=== PATIENT | female | born 1955 | race Caucasian/White ===

== ENCOUNTER 2022-01-08 12:34 | Emergency (ER) | payer MEDICARE, SELFPAY ==
--- NOTE | ~2022-01-08 | CT_ITS ---
EXAMINATION: CT abdomen pelvis wo con DATE: 01/08/2022 13:45 INDICATION: right flank pain TECHNIQUE: Computed tomography (CT) of the abdomen and pelvis was performed without intravenous contr ast. Automated exposure control and iterative reconstruction technique were employed. The dose-length product was 604.15 mGy-cm. COMPARISON: None. FINDINGS: Lower thorax: Coronary artery calcification. Hiatal hernia. Liver: Normal. Biliary/Gallbladder: Gallbladder is absent. No bile duct dilation. Pancreas: No mass or duct dilation. Spleen: Normal. Adrenals:No mass. Kidneys: Mild right pelviectasis and proximal/mid ureterectasis. No renal calcification or mass. GI tract: No small or large bowel dilation. Normal appendix. Mesentery/Peritoneum: No ascites, mass, or free air. Retroperitoneum: No mass. Atherosclerotic abdominal aortic and/or arterial calcifications. Pelvis: Pelvic anatomy completely obscured by beam hardening artifact from bilateral hip arthroplasti es. Soft Tissues: Soft tissues and body wall unremarkable. Bones: No acute osseous finding. IMPRESSION: Minimal right hydronephrosis without obstructing mass or stone identified, noting that the distal ure ters (along with the majority of the pelvic contents) are obscured by beam hardening artifact from hi p arthroplasties. Reviewed, dictated and finalized at [facility]. IMPRESSION: Minimal right hydronephrosis without obstructing mass or stone identified, noti ng that the distal ureters (along with the majority of the pelvic contents) are obscured by beam hardening artifact from hip arthroplasties.
--- NOTE | ~2022-01-08 | XR_ITS ---
XR abdomen/kub 1V DATE: 01/08/2022 14:57 INDICATION: Right flank pain for one week. Hematuria. TECHNIQUE: AP projection, 2 views COMPARISON: 01/08/[address] abdomen pelvis FINDINGS: Status post bilateral total hip arthroplasty. Surgical clips, right upper quadrant, consistent with cholecystectomy. No visceromegaly is evident. The psoas shadows are intact. There is an approximately 2 mm calcification overlying the right lower pelvis; this might be a calcif ied phlebolith, less likely a ureterovesical or distal ureteral calculus. Follow-up radiographs would be helpful to differentiate these possibilities. Status post bilateral total hip arthroplasty. No evidence of bowel obstruction. IMPRESSION: Nonspecific abdomen Right pelvic 2 mm calcification overlying the lower pelvic area is likely a small calcified phlebolit h, less likely a distal ureteral or ureterovesical junction calculus. Follow-up KUB examinations may be of benefit (considering the extensive streak artifact from the bilateral hip arthroplasties on CT imaging). Status post bilateral total hip arthroplasty Reviewed, dictated and finalized at [facility]. Reviewed, dictated and finalized at [facility]. IMPRESSION: Nonspecific abdomen Right pelvic 2 mm calcification overlying the lower pelvic area is likely a sma ll calcified phlebolith, less likely a distal ureteral or ureterovesical juncti on calculus. Follow-up KUB examinations may be of benefit (considering the exte nsive streak artifact from the bilateral hip arthroplasties on CT imaging). Status post bilateral total hip arthroplasty
[2022-01-08 12:38] VITALS: BP 128/65; PULSE 56; RESP 16; TEMP 36.2; O2SAT 97
--- NOTE | 2022-01-08 12:59 | ED.ABDPAIN ---
HPI - Abdominal Pain General Chief Complaint: Back Pain/Injury Stated Complaint: kidney pain Time Seen by Provider: 01/08/22 12:54 History of Present Illness HPI narrative: here with right flank pain a week ago then blood in urine last Friday then all some better but then again last 24-48 hours constant pain again. deep inside no f/n/v/d/change in chronic urine frequency due to bladder sling issues. no other trauma/cp/sob/uri or other c/o no family or her h/o kidney stones or frequent utis Related Data Allergies Allergy/AdvReac Type Severity Reaction Status Date / Time aspirin [From Aggrenox] Allergy Unknown Verified 01/08/22 12:58 dipyridamole [From Aggrenox] Allergy Unknown Verified 01/08/22 12:58 Review of Systems Constitutional: Comments: CONSTITUTIONAL: Denies fever, chills, or sweats. EYES: Denies visual changes, redness, or discharge. ENT: Denies rhinorrhea, congestion, sore throat, or otalgia. CARDIOVASCULAR: Denies chest pain, palpitations, or edema. RESPIRATORY: Denies cough or dyspnea. GASTROINTESTINAL: Denies abdominal pain, nausea, vomiting, or diarrhea. GENITOURINARY: Denies dysuria has hematuria and right flank pain SKIN: Denies rash or itching. MUSCULOSKELETAL: Denies back pain, joint pain, or myalgia. NEUROLOGIC: Denies headache, numbness, or weakness. PSYCHIATRIC: Denies anxiety or depression. Exam Const: Other: APPEARANCE: Well appearing, no pain in distress, well-nourished. Head normocephalic atraumtaic. EYES: PERRLA/EOMI, conjunctivae very clear. NOSE: Normal no drainage EARS:TMS clear Gina Iniguez, with good light reflex. THROAT: Pharynx clear, no exudate. NECK: Supple. No adenopathy, no masses. RESPIRATORY: Airway patent, repsirations nonlabored. Clear to auscultation bilaterally, no rales, rhonchi, wheezing. CARDIOVASCULAR: Regular rate and rhythm without murmurs rubs or gallops. ABDOMINAL: Soft, nontender, nondistended, no hepatosplenomegally can;t reproduce the cva tend says just down deep MUSCULOSKELETAl: Moves all extremities. Strenght/ROM intact, No edema, No calf tenderness. NEURO: Alert. Cranial nerves II through XII intact. Good gait. Good coordination SKIN:: Warm, dry. Normal Color PSYCHIATRIC: Normal affect/mood, normal interaction with parents. Course Reevaluation(s) Reevaluation #1: pt doing better and discussed plan shes good wiht it all and will d/c after kub Consultations Consultation #1: dr guzman at [id number] aware all results adn says get kub given artifact from hardware and treat as stone and f/u in his office Vital Signs Vital signs: Vital Signs Temperature 36.2 C L 01/08/22 12:38 Pulse Rate 56 L 01/08/22 12:38 Respiratory Rate 16 01/08/22 12:38 Blood Pressure 128/65 01/08/22 12:38 Pulse Oximetry 97 01/08/22 12:38 Oxygen Delivery Room Air 01/08/22 12:38 Temperature 36.2 C L 01/08/22 12:38 Pulse Rate 56 L 01/08/22 12:38 Respiratory Rate 16 01/08/22 12:38 Blood Pressure 128/65 01/08/22 12:38 Pulse Oximetry 97 01/08/22 12:38 Oxygen Delivery Room Air 01/08/22 12:38 MDM - Abdominal Pain Lab Data Result diagrams: 01/08/22 13:12 01/08/22 13:12 Labs: Lab Results 01/08/22 01/08/22 01/08/22 Range/Units 13:12 13:12 13:15 WBC 5.8 (4.5-10.0) K/mm3 RBC 4.34 (4.2-5.4) M/mm3 Hgb 13.4 (12.0-15.0) g/dL Hct 39.2 (37.0-47.0) % MCV 90.3 (80-100) fl MCH 30.9 (26-34) pg MCHC 34.2 (32-36) g/dl RDW 12.6 (11.5-14.5) % Plt Count 257 (150-375) k/mm3 MPV 10.0 (7.4-10.4) fl Immature Gran % (Auto) 0.2 (0-0.5) % Neut % (Auto) 55.1 (45.5-73.1) % Lymph % (Auto) 31.9 (18.3-44.2) % Dane % (Auto) 9.4 H (2.6-8.5) % Eos % (Auto) 3.1 (0-4.4) % Baso % (Auto) 0.3 (0.2-1.2) % Lymph # (Auto) 1.84 (0.9-3.2) K/mm3 Dane # (Auto) 0.5 (0.1-0.6) K/mm3 Eos # (Auto) 0.2 (0-0.3) K/mm3 Baso # (Auto) 0.0 (0.0-0.1) K/mm3 Abs Immat Gran (auto)
[2022-01-08] MEDS: SODIUM CHLORIDE 0.9% IV 1,000 ML 999 ML IV CONT (13:21)
[2022-01-08] MEDS: ONDANSETRON INJ 4 MG/2 ML VIAL IV PUSH (13:22)
[2022-01-08] MEDS: KETOROLAC 30 MG/ML VIAL (*BKC) IV PUSH (13:22)
[2022-01-08 13:24] LABS: Basophils Percent Auto 0.3 % (0.2-1.2); Eosinophils Absolute Auto 0.2 K/mm3 (0-0.3); Eosinophils Percent Auto 3.1 % (0-4.4); Hematocrit 39.2 % (37.0-47.0); Hemoglobin 13.4 g/dL (12.0-15.0); Immature Granulocyte Absolute 0.01 K/mm3 (0.00-0.031); Immature Granulocyte Percent A 0.2 % (0-0.5); Lymphocytes Absolute Auto 1.84 K/mm3 (0.9-3.2); Lymphocytes Percent Auto 31.9 % (18.3-44.2); Mean Corpuscular HGB Conc 34.2 g/dl (32-36); Mean Corpuscular Hemoglobin 30.9 pg (26-34); Mean Corpuscular Volume 90.3 fl (80-100); Monocytes Absolute Auto 0.5 K/mm3 (0.1-0.6); Monocytes Percent Auto 9.4 % (2.6-8.5); Neutrophils Absolute Auto 3.2 K/mm3 (1.3-6.7); Neutrophils Percent Auto 55.1 % (45.5-73.1); Platelet Count Result 257 k/mm3 (150-375); Red Blood Count 4.34 M/mm3 (4.2-5.4); Red Cell Distribution Width 12.6 % (11.5-14.5); White Blood Count 5.8 K/mm3 (4.5-10.0)
[2022-01-08 13:33] LABS: Appearance Urine Clear (Clear); Bilirubin Urine Negative (Negative); Blood Urine Negative (Negative); Color Urine Yellow (Yellow); Glucose Urine UA Negative (Negative); Ketones Urine Negative (Negative); Leukocyte Esterase Ur Negative LEU/UL (Negative); Nitrate Urine Negative (Negative); Protein Urine Negative (Negative); Urobilinogen Urine 0.2 mg/dL (<2.0)
[2022-01-08 13:34] LABS: Add Urine Microscopic? NO
[2022-01-08 14:27] LABS: Alanine Aminotransferase 24 U/L (6-35); Albumin Level 3.5 g/dL (3.5-5.1); Alkaline Phosphatase 67 U/L (38-126); Anion Gap 4 mmol/L (8-16); Aspartate Amino Transferase 29 U/L (14-36); Bilirubin,Total 0.3 mg/dL (0.2-1.3); Blood Urea Nitrogen 14 mg/dL (7-17); Calcium 8.2 mg/dL (8.4-10.2); Carbon Dioxide 29 mmol/L (22-30); Chloride 106 mmol/L (98-107); Estimated CRCL calculation 66 ml/min; Estimated Glomerular Filt Rate > 60; Glucose 89 mg/dL (65-110); Potassium 4.2 mmol/L (3.4-5.0); Sodium 139 mmol/L (137-145)
== END 2022-01-08 15:25 | disposition home or self-care (01) ==
PROVIDERS: Emergency Provider Emergency Medicine
DX: R10.9 Unspecified abdominal pain (principal); N13.30 Unspecified hydronephrosis
CPT/HCPCS: 36415; 74018; 74176; 80053; 81003; 85025; 96361; 96374; 96375; 99284; J1885; J2405; J7030